=== PATIENT | female | born 1950 | race Caucasian/White ===

== ENCOUNTER → 2020-12-15 | Day surgery (SDC) | payer OTHER ==
[~2020-12-15] MED LIST: CLARITIN10 MG PO; DORZOLAMIDE 2%10 ML OS; LOVAZA1 GM PO; OSTEO BI-FLEX1 EAC1 PO; VENTOLIN HFA IN18 GM INH; VITAMIN B122500 MCG PO; VITAMIN D325 GM PO
[2020-12-15 09:00] LABS: HCT 42.6 % (37.0-47.0); MCH 29.9 pg (25.0-31.0); MCHC 32.9 g/dL (32.0-36.0); MPV 9.5 fL (6.0-9.5); RBC 4.68 M/uL (4.20-5.40); RDW 12.4 % (11.5-14.0); WBC 7.1 K/uL (4.0-10.5)
[2020-12-15 09:33] LABS: ALBUMIN 4.2 g/dL (3.4-5.0); BILIRUBIN - TOTAL 0.6 mg/dL (0.2-1.0); BUN/CREAT RATIO (CALC) 20.8 RATIO; CREATININE 0.77 mg/dL (0.51-0.95); GLOBULIN (CALCULATION) 3.4 g/dL; POTASSIUM 4.1 mmol/L (3.5-5.1); TOTAL PROTEIN 7.6 g/dL (6.4-8.2)
== END | disposition home or self-care (01) ==
LOC: FAS 08:28
PROVIDERS: Surgery
DX: C18.9 Malignant neoplasm of colon, unspecified (principal); D12.6 Benign neoplasm of colon, unspecified; E04.1 Nontoxic single thyroid nodule; K57.90 Diverticulosis of intestine, part unspecified, without perforation or abscess without bleeding; Z90.49 Acquired absence of other specified parts of digestive tract; Z90.710 Acquired absence of both cervix and uterus; Z87.891 Personal history of nicotine dependence; Z20.822 Contact with and (suspected) exposure to COVID-19; Z79.899 Other long term (current) drug therapy
CPT/HCPCS: 36415; 80053; 88305; 88341; 88342; J1610; J2250; J2704; J7120